=== PATIENT | male | born 1985 | race Two or more races ===

== ENCOUNTER 2019-07-19 08:38 | Emergency (ER) | payer MEDICAID ==
[~2019-07-19] VITALS: Ht 177.8 cm; Wt 81.6 kg
[2019-07-19 09:30] LABS: Basophils # (auto) 0 uL; Basophils % (auto) 1.2 % (0.0-2.0); Eosinophils # (auto) 0.1 uL; Eosinophils % (auto) 2.8 % (0.0-7.0); Hematocrit 47.2 % (41.0-53.0); Hemoglobin 15.9 g/dL (13.5-17.5); Lymphocytes # (auto) 0.8 uL; Lymphocytes % (auto) 21.9 % (10.0-50.0); Mean Corpuscular Hemoglobin 33.4 pg (28.0-32.0); Mean Corpuscular Hgb Conc. 33.7 g/dL (32.0-36.0); Mean Corpuscular Volume 99.1 fL (80.0-100.0); Monocytes # (auto) 0.2 uL; Monocytes % (auto) 5.8 % (0.0-12.0); Neutrophils # (auto) 2.6 uL; Neutrophils % (auto) 68.3 % (37.0-80.0); Platelet Count (auto) 250 10^3/uL (140-450); Red Blood Cells 4.76 10^6/uL (4.5-5.90); Red Cell Distribution Width 13.1 % (11.8-14.3); White Blood Cell 3.8 10^3/uL (4.4-10.8)
[2019-07-19 09:46] LABS: Alanine Aminotransferase 28 U/L (16-61); Albumin 4.4 g/dL (3.4-5.0); Anion Gap 3 (5-15); Aspartate Aminotransferase 11 U/L (15-37); BUN/Creatinine Ratio 13.4; Blood Urea Nitrogen 11 mg/dL (7-18); Calcium 8.6 mg/dL (8.5-10.1); Carbon Dioxide 28 mmol/L (21-32); Chloride 108 mmol/L (98-107); GFR African American 140 mL/min; GFR Non-African American 116 mL/min; Glucose 105 mg/dL (74-106); Sodium 139 mmol/L (136-145)
[2019-07-19 09:51] LABS: Alkaline Phosphatase 56 U/L (45-117); Bilirubin, Total 1.2 mg/dL (0.2-1.0); Total Protein 7.6 g/dL (6.4-8.2)
[2019-07-19 10:00] LABS: INR 0.96 (0.9-1.15); Partial Thromboplastin Time 28.2 sec (23.64-32.05)
[2019-07-19] MEDS ORDERED: ASPirin 81 mg TAB PO ONE (10:45)
[2019-07-19 11:42] VITALS: BP 134/71
== END 2019-07-19 11:45 | disposition home or self-care (01) ==
LOC: ER 08:38
DX: R07.89 Other chest pain (principal); F41.9 Anxiety disorder, unspecified
CPT/HCPCS: 36415; 71046; 80053; 83880; 84484; 85025; 85610; 85730; 93005

== ENCOUNTER 2023-03-01 18:58 | Emergency (ER) | payer MEDICAID ==
[~2023-03-01] VITALS: Ht 177.8 cm; Wt 100.0 kg
[2023-03-01 19:18] VITALS: BP 134/85
[2023-03-01 19:58] LABS: Basophils # (auto) 0 10 ^3/uL (0-0.2); Basophils % (auto) 0.5 % (0.0-2.0); Eosinophils # (auto) 0 10 ^3/uL (0-0.8); Eosinophils % (auto) 0.5 % (0.0-7.0); Hematocrit 44.5 % (41.0-53.0); Hemoglobin 15.4 g/dL (13.5-17.5); Lymphocytes # (auto) 1.3 10 ^3/uL (0.4-5.4); Lymphocytes % (auto) 18.3 % (10.0-50.0); Mean Corpuscular Hemoglobin 33.3 pg (28.0-32.0); Mean Corpuscular Hgb Conc. 34.6 g/dL (32.0-36.0); Mean Corpuscular Volume 96.3 fL (80.0-100.0); Monocytes # (auto) 0.5 10 ^3/uL (0-1.3); Monocytes % (auto) 6.6 % (0.0-12.0); Neutrophils # (auto) 5.4 10 ^3/uL (1.6-8.6); Neutrophils % (auto) 74.1 % (37.0-80.0); Nucleated Red Blood Cells % 0.2 %; Red Blood Cells 4.63 10^6/uL (4.5-5.90); Red Cell Distribution Width 13.1 % (11.8-14.3); White Blood Cell 7.3 10^3/uL (4.4-10.8)
[2023-03-01 20:11] LABS: BUN/Creatinine Ratio 7.3 (10.0-20.0); Calcium 9.3 mg/dL (8.5-10.1); Potassium 3.6 mmol/L (3.5-5.1)
== END 2023-03-01 23:30 | disposition left against medical advice (07) ==
LOC: ER 18:58
DX: R10.13 Epigastric pain (principal); R07.89 Other chest pain
CPT/HCPCS: 36415; 71045; 74176; 80048; 83690; 84484; 85025; 93005

== ENCOUNTER 2023-04-01 11:23 | Emergency (ER) | payer MEDICAID, OTHER ==
[~2023-04-01] VITALS: Ht 180.3 cm; Wt 90.6 kg
[2023-04-01 12:25] VITALS: BP 141/93
[2023-04-01] MEDS ORDERED: DexAMETHasone SOD PHOS 10MG/1ML VIAL INJ IM ONE (12:30)
[2023-04-01] MEDS ORDERED: EPIN0.1I11 IJ (13:23)
[2023-04-01] MEDS ORDERED: CEPH500T PO (13:23)
[2023-04-01] MEDS ORDERED: DIPH25CA66 PO (13:23)
== END 2023-04-01 13:42 | disposition home or self-care (01) ==
LOC: ER 11:23
DX: T63.441A Toxic effect of venom of bees, accidental (unintentional), initial encounter (principal); Y92.89 Other specified places as the place of occurrence of the external cause
CPT/HCPCS: 96372; 99283; J1100